=== PATIENT | male | born 1985 | race American Indian/Alaskan Native ===

== ENCOUNTER 2022-01-19 15:16 | Emergency (ER) | payer OTHER ==
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
[2022-01-19] MEDS ORDERED: SODIUM BICARB 8.4% 50 MEQ/50 ML SYRINGE IV ONE (16:00)
[2022-01-19] MEDS ORDERED: CALCIUM CHLORIDE 1,000 MG/10 ML SYRINGE IV ONE (16:00)
== END 2022-01-19 18:10 ==
LOC: ED 15:16
DX: T14.8XXA Other injury of unspecified body region, initial encounter (principal); I46.9 Cardiac arrest, cause unspecified; W34.09XA Accidental discharge from other specified firearms, initial encounter; Y93.89 Activity, other specified; Y92.89 Other specified places as the place of occurrence of the external cause; Y99.8 Other external cause status
CPT/HCPCS: 92950; 99285; J3490